=== PATIENT | male | born 1980 | race Caucasian/White ===

== ENCOUNTER 2016-09-27 17:22 | Emergency (ER) | payer MEDICAID ==
[~2016-09-27] VITALS: Ht 172.7 cm; Wt 84.9 kg
[~2016-09-27 17:22] MED LIST: ARIP10TA13 PO; FOLI-17 PO; GABA300C10 PO; LORA-446 PO; OMEP20CA14 PO; PROP20SO PO; THIA100T6 PO; TRAZ300T2 PO
[2016-09-27] MEDS ORDERED: LIDOCAINE 1%, 20ML ONE (18:18)
[2016-09-27] MEDS ORDERED: LIDOCAINE 1%, 20ML INFIL ONE (18:30)
[2016-09-27] MEDS ORDERED: DIPH,PERTUSS(ACELL),TET VAC/PF 0.5 ML IM-VACC ONE ×2 (18:30→19:02)
[2016-09-27] MEDS ORDERED: BACITRACIN ZINC OINT 500U/GM, 0.9 GM ONE (20:05)
[2016-09-27 20:23] VITALS: BP 124/78
== END 2016-09-27 20:34 | disposition home or self-care (01) ==
LOC: ED 19:23
DX: S01.81XA Laceration without foreign body of other part of head, initial encounter (principal); F10.129 Alcohol abuse with intoxication, unspecified; I10 Essential (primary) hypertension; K21.9 Gastro-esophageal reflux disease without esophagitis
CPT/HCPCS: 12013; 70450; 90471; 90715; 99284; J3490

== ENCOUNTER 2017-08-15 21:28 | Emergency (ER) | payer MEDICAID ==
[~2017-08-15] VITALS: Ht 172.7 cm; Wt 80.0 kg
[~2017-08-15 21:28] MED LIST changes: -ARIP10TA13 PO; +ARIP10TA33 PO
[2017-08-15 22:06] LABS: BASOPHILS # (AUTO) 0.02 x10^3/uL (0-0.1); BASOPHILS % (AUTO) 0 % (0-1); EOSINOPHILS % (AUTO) 0 % (1-7); LYMPHOCYTES # (AUTO) 2.01 x10^3/uL (1-3.4); LYMPHOCYTES % (AUTO) 35 % (22-44); MD NO; MEAN CORPUSCULAR HEMOGLOBIN 31.2 pg (27.5-34.5); MEAN CORPUSCULAR HGB CONC 34.2 g/dL (33.2-36.2); MEAN CORPUSCULAR VOLUME 91.3 fL (81-97); MEAN PLATELET VOLUME 7.7 fL (7.4-10.4); MONOCYTES # (AUTO) 0.28 x10^3/uL (0.2-0.8); MONOCYTES % (AUTO) 5 % (2-9); NEUTROPHILS # (AUTO) 3.53 x10^3/uL (1.8-6.8); NEUTROPHILS % (AUTO) 61 % (42-75); PLATELET COUNT 227 x10^3/uL (130-400); RED BLOOD COUNT 5.38 x10^6/uL (4.38-5.82)
[2017-08-15 22:17] LABS: ALBUMIN 4.2 g/dL (3.4-5.0); ANION GAP 12 mmol/L (5-15); CALCIUM 8.5 mg/dL (8.5-10.1); CHLORIDE 104 mmol/L (98-107)
[2017-08-15 22:23] LABS: CREATININE 0.76 mg/dL (0.7-1.3); TROPONIN I < 0.015 ng/mL (0.000-0.045)
[2017-08-15] MEDS ORDERED: POTASSIUM CHLORIDE 20 MEQ TAB.ER.PRT PO ONE (23:00)
[2017-08-15] MEDS ORDERED: POTASSIUM CHLORIDE 20 MEQ TAB.ER.PRT ONE (23:19)
[2017-08-15 23:28] VITALS: BP 136/89
== END 2017-08-15 23:32 | disposition home or self-care (01) ==
LOC: ED 23:26
DX: R07.89 Other chest pain (principal); F10.220 Alcohol dependence with intoxication, uncomplicated; E87.6 Hypokalemia; R07.2 Precordial pain; K21.9 Gastro-esophageal reflux disease without esophagitis; G40.909 Epilepsy, unspecified, not intractable, without status epilepticus; I10 Essential (primary) hypertension
CPT/HCPCS: 36415; 71045; 80048; 80307; 82040; 84484; 85025; 93005; 99285

== ENCOUNTER 2017-12-03 12:33 | Inpatient (IN) | payer MEDICAID, OTHER ==
[~2017-12-03] VITALS: Ht 170.2 cm; Wt 83.0 kg
[2017-12-03] MEDS ORDERED: LORazepam 1MG TABLET ONE (12:50)
[2017-12-03] MEDS ORDERED: THIAMINE 100MG TABLET ONE (12:50)
[2017-12-03] MEDS ORDERED: LORazepam 1MG TABLET PO ONE (13:00)
[2017-12-03] MEDS ORDERED: THIAMINE 100MG TABLET PO ONE (13:00)
[2017-12-03 13:07] LABS: BASOPHILS # (AUTO) 0.04 x10^3/uL (0-0.1); BASOPHILS % (AUTO) 1 % (0-1); EOSINOPHILS # (AUTO) 0.13 x10^3/uL (0-0.4); EOSINOPHILS % (AUTO) 2 % (1-7); LYMPHOCYTES # (AUTO) 2.22 x10^3/uL (1-3.4); LYMPHOCYTES % (AUTO) 41 % (22-44); MD NO; MEAN CORPUSCULAR HEMOGLOBIN 32.3 pg (27.5-34.5); MEAN CORPUSCULAR HGB CONC 34.5 g/dL (33.2-36.2); MEAN CORPUSCULAR VOLUME 93.6 fL (81-97); MEAN PLATELET VOLUME 7.6 fL (7.4-10.4); MONOCYTES # (AUTO) 0.49 x10^3/uL (0.2-0.8); MONOCYTES % (AUTO) 9 % (2-9); NEUTROPHILS # (AUTO) 2.48 x10^3/uL (1.8-6.8); NEUTROPHILS % (AUTO) 46 % (42-75); PLATELET COUNT 140 x10^3/uL (130-400); RED BLOOD COUNT 4.98 x10^6/uL (4.38-5.82); RED CELL DISTRIBUTION WIDTH 15.6 % (9.4-14.8)
[2017-12-03 13:19] LABS: ALANINE AMINOTRANSFERASE 123 U/L (12-78); ALBUMIN 4.1 g/dL (3.4-5.0); ANION GAP 13 mmol/L (5-15); CALCIUM 8.4 mg/dL (8.5-10.1); CHLORIDE 102 mmol/L (98-107); CREATININE 0.75 mg/dL (0.7-1.3)
[2017-12-03 13:21] LABS: ALKALINE PHOSPHATASE 100 U/L (45-117); BILIRUBIN,TOTAL 0.6 mg/dL (0.2-1.0); TOTAL PROTEIN 8.5 g/dL (6.4-8.2)
[2017-12-03 13:25] LABS: SALICYLATE LEVEL < 1.7 mg/dL (2.8-20.0)
[2017-12-03 13:26] LABS: ACETAMINOPHEN < 2 mcg/mL (10-30)
[2017-12-03] MEDS ORDERED: ONDANSETRON ODT 4 MG PO ONE (13:30)
[2017-12-03 13:47] LABS: BARBITURATE SCREEN, URINE Negative (Negative); BENZODIAZEPINE SCREEN, URINE Negative (Negative); CANNABINOID SCREEN, URINE Negative (Negative); COCAINE SCREEN, URINE Negative (Negative); METHADONE SCREEN, URINE Negative (Negative); OPIATE SCREEN, URINE Negative (Negative)
[2017-12-03 13:49] LABS: AMPHETAMINE SCREEN, URINE Negative (Negative)
[2017-12-03] MEDS ORDERED: MAALOX/HYOSCYAMINE/LIDOCAINE 45 ML BTL PO ONE (14:00)
[2017-12-03] MEDS ORDERED: ONDANSETRON ODT 4 MG ONE (14:12)
[2017-12-03] MEDS ORDERED: MAALOX/HYOSCYAMINE/LIDOCAINE 45 ML BTL ONE (14:12)
[2017-12-03] MEDS ORDERED: LORazepam 2 MG/ML, 1ML ONE ×2 (14:13→16:02)
[2017-12-03] MEDS: LORazepam 2 MG/ML, 1ML IVPush PRN ×2 (14:19→16:04)
[2017-12-03] MEDS ORDERED: multivitamin PO (14:38)
[2017-12-03] MEDS ORDERED: SODIUM CHLORIDE 0.9% 1,000 ML IV ONE (15:13)
[2017-12-03] MEDS ORDERED: LORazepam 1MG TABLET PO PRN ×4 (15:30)
[2017-12-03] MEDS ORDERED: FOLIC ACID 5 MG/ML IM ONE (15:30)
[2017-12-03] MEDS ORDERED: LORazepam 2 MG/ML, 1ML IV PRN ×2 (15:30)
[2017-12-03] MEDS ORDERED: LORazepam 0.5MG TABLET PO PRN (15:30)
[2017-12-03] MEDS ORDERED: LABETALOL 5MG/ML, 20ML IV PRN (15:30)
[2017-12-03] MEDS ORDERED: SODIUM CHLORIDE FLUSH 10ML SYR IVF PRN (15:30)
[2017-12-03] MEDS ORDERED: DIPHENHYDRAMINE 50 MG CAPSULE PO PRN (15:30)
[2017-12-03] MEDS ORDERED: PROMETHAZINE 12.5 MG SUPP PR PRN (15:30)
[2017-12-03] MEDS ORDERED: THIAMINE 200 MG in DEXTROSE 5% 50 ML IVPB ONE (15:30)
[2017-12-03] MEDS ORDERED: morphine SULFATE/PF 0.5 MG/ML, 10ML IV PRN (15:30)
[2017-12-03] MEDS ORDERED: ONDANSETRON 2MG/ML, 2ML IV PRN (15:30)
[2017-12-03] MEDS ORDERED: DIPHENHYDRAMINE 50 MG/ML, 1ML IV PRN (15:30)
[2017-12-03 16:27] VITALS: BP 134/76
[2017-12-03] MEDS ORDERED: OMNIPAQUE 350 MG/ML, 100ML BOTTLE ONE (18:01)
[2017-12-03] MEDS: POTASSIUM CHLORIDE 20 MEQ, MVI ADULT 10 ML, FOLIC ACID 1 MG, MAGNESIUM SULFATE 2 GM in ... IV SCH ×2 (18:17→23:15)
[2017-12-03] MEDS: ENOXAPARIN 40 MG/0.4 ML SQ SCH (18:17)
[2017-12-03] MEDS: MAGNESIUM CHLORIDE 64 MG TABLET.DR PO SCH ×2 (18:17→20:12)
[2017-12-03] MEDS: CHLORDIAZEPOXIDE 25 MG CAPSULE PO SCH ×2 (18:18→20:12)
[2017-12-03] MEDS: MORPHINE SULFATE 4 MG/ML, 1ML IV PRN (20:13)
[2017-12-03 20:29] VITALS: BP 103/64
[2017-12-03] MEDS: LORazepam 2 MG/ML, 1ML IV PRN (22:11)
[2017-12-04 01:04] VITALS: BP 140/79
[2017-12-04] MEDS: MORPHINE SULFATE 4 MG/ML, 1ML IV PRN ×5 (01:52→20:42)
[2017-12-04] MEDS: LORazepam 2 MG/ML, 1ML IV PRN ×3 (02:49→12:21)
[2017-12-04 04:53] LABS: ALBUMIN 3.5 g/dL (3.4-5.0); ANION GAP 9 mmol/L (5-15); CALCIUM 8.3 mg/dL (8.5-10.1); CHLORIDE 104 mmol/L (98-107)
[2017-12-04 04:57] LABS: ALANINE AMINOTRANSFERASE 93 U/L (12-78); ALKALINE PHOSPHATASE 80 U/L (45-117); BILIRUBIN,TOTAL 1.1 mg/dL (0.2-1.0); TOTAL PROTEIN 7.3 g/dL (6.4-8.2)
[2017-12-04 05:58] LABS: BASOPHILS # (AUTO) 0.02 x10^3/uL (0-0.1); BASOPHILS % (AUTO) 1 % (0-1); EOSINOPHILS % (AUTO) 4 % (1-7); LYMPHOCYTES # (AUTO) 1.49 x10^3/uL (1-3.4); LYMPHOCYTES % (AUTO) 49 % (22-44); MD SCAN; MEAN CORPUSCULAR HEMOGLOBIN 32.5 pg (27.5-34.5); MEAN CORPUSCULAR HGB CONC 34.4 g/dL (33.2-36.2); MEAN CORPUSCULAR VOLUME 94.4 fL (81-97); MEAN PLATELET VOLUME 7.9 fL (7.4-10.4); MONOCYTES % (AUTO) 10 % (2-9); NEUTROPHILS # (AUTO) 1.11 x10^3/uL (1.8-6.8); NEUTROPHILS % (AUTO) 37 % (42-75); PLATELET COUNT 96 x10^3/uL (130-400); RED BLOOD COUNT 4.78 x10^6/uL (4.38-5.82); RED CELL DISTRIBUTION WIDTH 15.6 % (9.4-14.8)
[2017-12-04 07:52] VITALS: BP 128/84
[2017-12-04] MEDS: CHLORDIAZEPOXIDE 25 MG CAPSULE PO SCH ×4 (08:06→20:31)
[2017-12-04] MEDS ORDERED: POTASSIUM CHLORIDE 20 MEQ, MVI ADULT 10 ML, FOLIC ACID 1 MG, MAGNESIUM SULFATE 2 GM in ... IV SCH (15:03)
[2017-12-04 15:33] VITALS: BP 139/91
[2017-12-04] MEDS: ENOXAPARIN 40 MG/0.4 ML SQ SCH (17:47)
[2017-12-04 19:42] VITALS: BP 135/93
[2017-12-04 20:51] LABS: CLOSTRIDIUM DIFFICILE ANTIGEN NEGATIVE; CLOSTRIDIUM DIFFICILE TOXIN NEGATIVE (Negative)
[2017-12-05] MEDS: MORPHINE SULFATE 4 MG/ML, 1ML IV PRN ×2 (01:04→09:50)
[2017-12-05 01:18] VITALS: BP 136/93
[2017-12-05 04:58] LABS: BASOPHILS # (AUTO) 0.02 x10^3/uL (0-0.1); BASOPHILS % (AUTO) 1 % (0-1); EOSINOPHILS # (AUTO) 0.16 x10^3/uL (0-0.4); EOSINOPHILS % (AUTO) 5 % (1-7); LYMPHOCYTES # (AUTO) 1.38 x10^3/uL (1-3.4); LYMPHOCYTES % (AUTO) 41 % (22-44); MD NO; MEAN CORPUSCULAR HEMOGLOBIN 32.5 pg (27.5-34.5); MEAN CORPUSCULAR HGB CONC 34.3 g/dL (33.2-36.2); MEAN CORPUSCULAR VOLUME 94.6 fL (81-97); MONOCYTES # (AUTO) 0.26 x10^3/uL (0.2-0.8); MONOCYTES % (AUTO) 8 % (2-9); NEUTROPHILS # (AUTO) 1.58 x10^3/uL (1.8-6.8); NEUTROPHILS % (AUTO) 47 % (42-75); PLATELET COUNT 103 x10^3/uL (130-400); RED BLOOD COUNT 5.01 x10^6/uL (4.38-5.82); RED CELL DISTRIBUTION WIDTH 15.6 % (9.4-14.8)
[2017-12-05 05:04] LABS: CALCIUM 8.2 mg/dL (8.5-10.1); CHLORIDE 106 mmol/L (98-107)
[2017-12-05 05:10] LABS: ALANINE AMINOTRANSFERASE 88 U/L (12-78); ALBUMIN 3.5 g/dL (3.4-5.0); ALKALINE PHOSPHATASE 81 U/L (45-117); ANION GAP 7 mmol/L (5-15); BILIRUBIN,TOTAL 1.2 mg/dL (0.2-1.0); CREATININE 0.58 mg/dL (0.7-1.3); TOTAL PROTEIN 7.2 g/dL (6.4-8.2)
[2017-12-05] MEDS: CHLORDIAZEPOXIDE 25 MG CAPSULE PO SCH ×5 (06:11→20:46)
[2017-12-05 06:57] VITALS: BP 125/85
[2017-12-05 13:43] VITALS: BP 139/95
[2017-12-05] MEDS: ENOXAPARIN 40 MG/0.4 ML SQ SCH (16:16)
[2017-12-05 19:27] VITALS: BP 139/98
[2017-12-05] MEDS: LORazepam 0.5MG TABLET PO PRN (19:55)
[2017-12-05] MEDS: ACETAMINOPHEN 325 MG TABLET PO PRN (19:55)
[2017-12-05] MEDS ORDERED: LOPERAMIDE 2 MG CAPSULE PO ONE (23:30)
[2017-12-06 01:58] VITALS: BP 137/94
[2017-12-06] MEDS: LORazepam 0.5MG TABLET PO PRN (05:06)
[2017-12-06] MEDS: CHLORDIAZEPOXIDE 25 MG CAPSULE PO SCH (06:05)
[2017-12-06 07:38] VITALS: BP 114/75
[2017-12-06] MEDS: SODIUM CHLORIDE 0.9% 1,000 ML IV SCH ×2 (08:00→18:00)
[2017-12-06 08:18] LABS: ANION GAP 14 mmol/L (5-15); CALCIUM 9.1 mg/dL (8.5-10.1); CHLORIDE 106 mmol/L (98-107); CREATININE 0.71 mg/dL (0.7-1.3)
[2017-12-06] MEDS ORDERED: LORazepam 0.5MG TABLET PO PRN (08:30)
[2017-12-06] MEDS ORDERED: LORazepam 2 MG/ML, 1ML IV PRN ×5 (08:30)
[2017-12-06] MEDS ORDERED: LORazepam 1MG TABLET PO PRN ×4 (08:30)
[2017-12-06] MEDS: LACTOBACILLUS CHEW TABLET PO SCH ×3 (10:30→20:17)
[2017-12-06 15:05] VITALS: BP 117/77
[2017-12-06] MEDS: ENOXAPARIN 40 MG/0.4 ML SQ SCH (16:47)
[2017-12-06 18:39] VITALS: BP 109/74
[2017-12-06 18:48] VITALS: BP 110/76
[2017-12-06] MEDS: CARVEDILOL 3.125 MG TABLET PO SCH (18:51)
[2017-12-06] MEDS: ACETAMINOPHEN 325 MG TABLET PO PRN (21:42)
[2017-12-07 01:20] VITALS: BP 119/62
[2017-12-07] MEDS: SODIUM CHLORIDE 0.9% 1,000 ML IV SCH ×2 (04:00→14:00)
[2017-12-07] MEDS: ACETAMINOPHEN 325 MG TABLET PO PRN ×2 (05:27→10:37)
[2017-12-07] MEDS: CARVEDILOL 3.125 MG TABLET PO SCH ×2 (05:28→17:54)
[2017-12-07 06:04] LABS: ANION GAP 11 mmol/L (5-15); CHLORIDE 109 mmol/L (98-107); CREATININE 0.62 mg/dL (0.7-1.3)
[2017-12-07 07:34] VITALS: BP 99/65
[2017-12-07] MEDS ORDERED: POTASSIUM CHLORIDE 20 MEQ TAB.ER.PRT PO ONE (08:00)
[2017-12-07] MEDS: LACTOBACILLUS CHEW TABLET PO SCH ×3 (10:37→20:39)
[2017-12-07 13:38] VITALS: BP 109/60
[2017-12-07] MEDS: ENOXAPARIN 40 MG/0.4 ML SQ SCH (15:30)
[2017-12-07 20:00] VITALS: BP 110/74
[2017-12-08 01:09] VITALS: BP 111/73
[2017-12-08] MEDS: CARVEDILOL 3.125 MG TABLET PO SCH (04:59)
[2017-12-08 06:08] LABS: BASOPHILS # (AUTO) 0.02 x10^3/uL (0-0.1); BASOPHILS % (AUTO) 0 % (0-1); EOSINOPHILS # (AUTO) 0.27 x10^3/uL (0-0.4); EOSINOPHILS % (AUTO) 5 % (1-7); LYMPHOCYTES # (AUTO) 2.52 x10^3/uL (1-3.4); LYMPHOCYTES % (AUTO) 45 % (22-44); MD NO; MEAN CORPUSCULAR HEMOGLOBIN 32.8 pg (27.5-34.5); MEAN CORPUSCULAR HGB CONC 33.8 g/dL (33.2-36.2); MEAN CORPUSCULAR VOLUME 96.8 fL (81-97); MEAN PLATELET VOLUME 8.5 fL (7.4-10.4); MONOCYTES # (AUTO) 0.44 x10^3/uL (0.2-0.8); MONOCYTES % (AUTO) 8 % (2-9); NEUTROPHILS # (AUTO) 2.38 x10^3/uL (1.8-6.8); NEUTROPHILS % (AUTO) 42 % (42-75); PLATELET COUNT 115 x10^3/uL (130-400); RED BLOOD COUNT 5.02 x10^6/uL (4.38-5.82)
[2017-12-08 06:30] LABS: ALANINE AMINOTRANSFERASE 167 U/L (12-78); ALBUMIN 3.7 g/dL (3.4-5.0); ANION GAP 8 mmol/L (5-15); CALCIUM 8.3 mg/dL (8.5-10.1); CHLORIDE 111 mmol/L (98-107); CREATININE 0.67 mg/dL (0.7-1.3)
[2017-12-08 06:32] LABS: ALKALINE PHOSPHATASE 78 U/L (45-117); BILIRUBIN,TOTAL 0.6 mg/dL (0.2-1.0); TOTAL PROTEIN 7.4 g/dL (6.4-8.2)
[2017-12-08] MEDS ORDERED: POTASSIUM CHLORIDE 20 MEQ TAB.ER.PRT PO ONE (07:00)
[2017-12-08 07:48] VITALS: BP 116/82
[2017-12-08] MEDS: ACETAMINOPHEN 325 MG TABLET PO PRN (07:58)
[2017-12-08] MEDS ORDERED: THIAMINE 100MG TABLET PO SCH (09:00)
[2017-12-08] MEDS ORDERED: FOLIC ACID 1 MG TABLET PO SCH (09:00)
[2017-12-08] MEDS: LACTOBACILLUS CHEW TABLET PO SCH (09:56)
[2017-12-08] MEDS: SODIUM CHLORIDE 0.9% 1,000 ML IV SCH ×2 (10:00)
[2017-12-08 13:38] VITALS: BP 111/71
[2017-12-08] MEDS: ENOXAPARIN 40 MG/0.4 ML SQ SCH (15:30)
== END 2017-12-08 15:56 | disposition left against medical advice (07) | DRG 439 ==
LOC: ED 14:29 → EDIP 15:03 → 4WST 16:15
PROVIDERS: ADMIT Internal Medicine; ATTEND Internal Medicine
DX: K85.20 Alcohol induced acute pancreatitis without necrosis or infection (principal); F10.231 Alcohol dependence with withdrawal delirium; F10.221 Alcohol dependence with intoxication delirium; R45.851 Suicidal ideations; D69.6 Thrombocytopenia, unspecified; E11.9 Type 2 diabetes mellitus without complications; E87.6 Hypokalemia; F17.201 Nicotine dependence, unspecified, in remission; K76.0 Fatty (change of) liver, not elsewhere classified; Z53.21 Procedure and treatment not carried out due to patient leaving prior to being seen by health care provider; K70.10 Alcoholic hepatitis without ascites; F32.9 Major depressive disorder, single episode, unspecified; I10 Essential (primary) hypertension; R56.9 Unspecified convulsions; Z76.5 Malingerer [conscious simulation]; Z88.0 Allergy status to penicillin; Z88.8 Allergy status to other drugs, medicaments and biological substances
CPT/HCPCS: 36415; 74170; 76700; 80048; 80053; 80307; 80329; 83690; 83735; 84100; 85025; 86706; 86709; 86803; 87324; 87340; 93005; 99285; J1650; J2405; J3411; J3475; J3480; J7042; Q0162; Q9967; G0480; J2060

== ENCOUNTER 2018-03-09 17:02 | Emergency (ER) | payer MEDICAID ==
[~2018-03-09] VITALS: Ht 170.2 cm; Wt 82.0 kg
[~2018-03-09 17:02] MED LIST changes: -THIA100T6 PO; +THIA100T67 PO; +multivitamin PO
[2018-03-09] MEDS ORDERED: THIAMINE 100MG TABLET ONE (17:45)
[2018-03-09 17:59] LABS: MEAN CORPUSCULAR HGB CONC 34.2 g/dL (33.2-36.2); MEAN CORPUSCULAR VOLUME 93.7 fL (81-97); MEAN PLATELET VOLUME 7.8 fL (7.4-10.4); PLATELET COUNT 372 x10^3/uL (130-400); RED BLOOD COUNT 5.15 x10^6/uL (4.38-5.82); RED CELL DISTRIBUTION WIDTH 15.3 % (9.4-14.8)
[2018-03-09] MEDS ORDERED: THIAMINE 100MG TABLET PO ONE (18:00)
[2018-03-09 18:05] LABS: ALANINE AMINOTRANSFERASE 126 U/L (12-78); ANION GAP 13 mmol/L (5-15); CALCIUM 8.4 mg/dL (8.5-10.1); CHLORIDE 107 mmol/L (98-107); CREATININE 0.68 mg/dL (0.7-1.3)
[2018-03-09 18:10] LABS: ALKALINE PHOSPHATASE 102 U/L (45-117); BILIRUBIN,TOTAL 0.6 mg/dL (0.2-1.0); TOTAL PROTEIN 8.7 g/dL (6.4-8.2); TROPONIN I 0.019 ng/mL (0.000-0.045)
[2018-03-09 18:14] LABS: BASOPHILS # (AUTO) 0.06 x10^3/uL (0-0.1); BASOPHILS % (AUTO) 1 % (0-1); EOSINOPHILS # (AUTO) 0.32 x10^3/uL (0-0.4); EOSINOPHILS % (AUTO) 5 % (1-7); LYMPHOCYTES # (AUTO) 3.34 x10^3/uL (1-3.4); LYMPHOCYTES % (AUTO) 53 % (22-44); MD NO; MONOCYTES # (AUTO) 0.49 x10^3/uL (0.2-0.8); MONOCYTES % (AUTO) 8 % (2-9); NEUTROPHILS # (AUTO) 2.14 x10^3/uL (1.8-6.8); NEUTROPHILS % (AUTO) 34 % (42-75)
[2018-03-09 19:20] VITALS: BP 116/72
== END 2018-03-09 19:23 | disposition home or self-care (01) ==
LOC: ED 19:17
DX: F10.229 Alcohol dependence with intoxication, unspecified (principal); K70.0 Alcoholic fatty liver; K70.10 Alcoholic hepatitis without ascites; K21.9 Gastro-esophageal reflux disease without esophagitis; F32.9 Major depressive disorder, single episode, unspecified
CPT/HCPCS: 36415; 71045; 80053; 83690; 84484; 85025; 93005; 99285

== ENCOUNTER 2018-11-14 14:50 | Emergency (ER) | payer SELFPAY ==
[~2018-11-14] VITALS: Ht 167.6 cm; Wt 80.0 kg
--- NOTE | 2018-11-14 15:00 | NUR ---
FELIPE SINGH FROM [facility] W/ CO SI. PLAN TO 'JUMP OFF OF THE [employer] GARRobert Applebaum MD'. HX OF SI/SA, PAST ATTEMPTS BY CUTTING. PT UNWILLING TO ANSWER QUESTIONS REGARDING MOTIVE. HX OF DEPRESSION AND ANXIETY. +ETOH, "ONE PINT OF VODKA". PT ALSO CO CHEST PAIN/DIZZINESS, STERNUM TENDER TO PALPATION. AGED SCAR OVER STERNUM, "I HAD A LUNG MASS TAKEN OUT. THIS FEELS THE SAME". PT DENIES SOB/PRODUCTIVE COUGH/FEVER. RECORDS INDICATE HX OF ETOH WITHDRAWAL SZ. WHILE DROWSY, PT DOES NOT APPEAR POSTICAL. NO ORAL TRAUMA NOTED. PT EVIDENCE OF INCONTINENCE. NO EVIDENCE OF FALL. PT MOSTLY DROWSY, ARROUSABLE TO VOICE. SPEECH CLEAR. FSBS 96. PT A&OX4; FACE SYMMETRICAL, PT AMBULATORY. EKG COMPLETED UPON ARRIVAL. BP/SPO2/ECG MONITORING IN PLACE. SINUS TACH ON MONITOR. BELONGINGS IN BAG (1) AT BEDSIDE AND LABLED. SITTER PRESENT FOR SAFETY. ROOM REMAINS UNSECURED UNTIL MEDICALLY CLEARED. SITTER AND ANALYSIS INTERNSHIP AWARE.
[2018-11-14 16:30] VITALS: BP 117/70
--- NOTE | 2018-11-14 16:33 | NUR ---
LAB UNABLE TO DRAW AFTER MULTIPLE ATTEMPTS. SECOND WIND PROJECTS SUPERVISOR TO ATTEMPT DRAW
[2018-11-14 17:01] LABS: BASOPHILS # (AUTO) 0.03 x10^3/uL (0-0.1); BASOPHILS % (AUTO) 0 % (0-1); EOSINOPHILS % (AUTO) 0 % (1-7); LYMPHOCYTES # (AUTO) 1.42 x10^3/uL (1-3.4); LYMPHOCYTES % (AUTO) 12 % (22-44); MD NO; MEAN CORPUSCULAR HEMOGLOBIN 30.4 pg (27.5-34.5); MEAN CORPUSCULAR HGB CONC 32.9 g/dL (33.2-36.2); MEAN CORPUSCULAR VOLUME 92.2 fL (81-97); MEAN PLATELET VOLUME 7.7 fL (7.4-10.4); MONOCYTES # (AUTO) 0.28 x10^3/uL (0.2-0.8); MONOCYTES % (AUTO) 2 % (2-9); NEUTROPHILS # (AUTO) 9.85 x10^3/uL (1.8-6.8); NEUTROPHILS % (AUTO) 85 % (42-75); PLATELET COUNT 275 x10^3/uL (130-400); RED BLOOD COUNT 5.33 x10^6/uL (4.38-5.82); RED CELL DISTRIBUTION WIDTH 14.9 % (9.4-14.8)
--- NOTE | 2018-11-14 17:03 | NUR ---
PT TOOK SELF OFF MONITORING AND IS REQUESTING "SOMETHING STRONGER THAN TYLENOL OR IBUPROFEN" FOR ABX PAIN. ABD PAIN X EIGHT MONTHS, SAME CURRENT PAIN PER PT. PT DENIES N/V/D. ERP AWARE OF REQUEST FOR PAIN MEDS. D/T PT ETOH CONSUMPTION, ERP WILLING TO ORDER TYLENOL WHICH PT IS REFUSING. Addendum: 11/14/18 at 1705 by ALFREDA ALL MONITORING REAPPLIED. SINUS ON MONITOR.
[2018-11-14 17:13] LABS: ALANINE AMINOTRANSFERASE 51 U/L (12-78); ALBUMIN 3.8 g/dL (3.4-5.0); ANION GAP 21 mmol/L (5-15); CALCIUM 7.4 mg/dL (8.5-10.1); CHLORIDE 100 mmol/L (98-107); CREATININE 0.85 mg/dL (0.7-1.3)
[2018-11-14 17:18] LABS: ALKALINE PHOSPHATASE 117 U/L (45-117); BILIRUBIN,TOTAL 0.9 mg/dL (0.2-1.0); TOTAL PROTEIN 7.6 g/dL (6.4-8.2); TROPONIN I < 0.015 ng/mL (0.000-0.045)
--- NOTE | 2018-11-14 17:23 | NUR ---
PT OFF MONITORING AGAIN. PROVIDED UA. SPO2 MONITOR REAPPLIED. SPO2 >90% ON RA. HR 105. PT REPORTS "I'M STARTING TO GET SHAKEY". SLIGHT RUE TREMOR NOTED WHICH RESOLVES W/ PURPOSEFUL MOVEMENT. ERP AWARE.
--- NOTE | 2018-11-14 17:30 | NUR ---
ERP AT BEDSIDE TO ASSESS FOR NEED FOR IV/ATIVAN.
[2018-11-14 17:43] LABS: AMPHETAMINE SCREEN, URINE Negative (Negative); BARBITURATE SCREEN, URINE Negative (Negative); BENZODIAZEPINE SCREEN, URINE Negative (Negative); CANNABINOID SCREEN, URINE Negative (Negative); COCAINE SCREEN, URINE Negative (Negative); METHADONE SCREEN, URINE Negative (Negative); OPIATE SCREEN, URINE Negative (Negative)
--- NOTE | 2018-11-14 17:53 | NUR ---
PT RESTING CALMLY.
[2018-11-14 17:54] LABS: ACETAMINOPHEN < 2 mcg/mL (10-30); SALICYLATE LEVEL < 1.7 mg/dL (2.8-20.0)
[2018-11-14] MEDS ORDERED: MAALOX/HYOSCYAMINE/LIDOCAINE 45 ML BTL PO ONE (18:00)
[2018-11-14] MEDS ORDERED: MAALOX/HYOSCYAMINE/LIDOCAINE 45 ML BTL ONE (18:33)
--- NOTE | 2018-11-14 18:41 | NUR ---
PT REFUSED GI COCKTAIL. PT REPORTS "I'M FEELING MUCH BETTER, I WANT TO LEAVE". ERP AWARE.
--- NOTE | 2018-11-14 19:00 | NUR ---
REPORT TO RAIN CLARK
== END 2018-11-14 19:52 | disposition home or self-care (01) ==
LOC: ED 18:18
DX: F10.129 Alcohol abuse with intoxication, unspecified (principal); F32.9 Major depressive disorder, single episode, unspecified; R07.89 Other chest pain; G89.11 Acute pain due to trauma; M79.672 Pain in left foot; M25.572 Pain in left ankle and joints of left foot; G40.909 Epilepsy, unspecified, not intractable, without status epilepticus; K21.9 Gastro-esophageal reflux disease without esophagitis; Z72.9 Problem related to lifestyle, unspecified; I10 Essential (primary) hypertension; F17.210 Nicotine dependence, cigarettes, uncomplicated
CPT/HCPCS: 36415; 71045; 80053; 80307; 82962; 83690; 84484; 85025; 93005; 99284